=== PATIENT | male | born 1980 | race Caucasian/White ===

== ENCOUNTER 2019-09-19 00:39 | Emergency (ER) | payer OTHER, SELFPAY ==
[~2019-09-19] VITALS: Ht 170.2 cm; Wt 100.0 kg
[2019-09-19 00:39] VITALS: BP 176/90
[2019-09-19] MEDS ORDERED: ACET-683 PO (01:14)
[2019-09-19] MEDS ORDERED: LIDOCAINE W/EPINEPHRINE 1% 20ML VIAL SC ONE (01:45)
[2019-09-19] MEDS ORDERED: DOXY100C37 PO (02:04)
[2019-09-19] MEDS ORDERED: DOXYCYCLINE HYCLATE 100 MG TAB PO ONE (02:15)
== END 2019-09-19 02:42 | disposition home or self-care (01) ==
LOC: M ED 00:39
DX: L02.31 Cutaneous abscess of buttock (principal)

== ENCOUNTER → 2025-11-22 | Outpatient (REF) | payer BC ==
[~2025-11-22] MED LIST: ACET-683 PO; DOXY-441 PO
[2025-11-22 12:36] LABS: PLATELET COUNT, AUTOMATED 293 10^3/uL (150-450)
[2025-11-22 13:00] LABS: ALT/SGPT 33 U/L (7.0-40); AST/SGOT 17 U/L (<34); CALCIUM LEVEL 9.0 MG/DL (8.5-10.1); CARBON DIOXIDE LEVEL 30 MMOL/L (20-31); CHLORIDE LEVEL 107 MMOL/L (98-107); CHOLESTEROL LEVEL 184 MG/DL (<200); CHOLESTEROL RISK RATIO 5.34 (<5); CREATININE FOR GFR 0.76 MG/DL (0.70-1.30); GLOMERULAR FILTRATION RATE > 90.0 (>60); LDL CHOLESTEROL 102.6 MG/DL (<100); NON-HDL-C 149.6 MG/DL; POTASSIUM SERUM 4.2 MMOL/L (3.5-5.1); SODIUM LEVEL 142 MMOL/L (136-145); TRIGLYCERIDES LEVEL 235 MG/DL (<150)
[2025-11-22 13:02] LABS: FREE T4 1.15 NG/DL (0.89-1.76)
[2025-11-22 13:14] LABS: ESTIMATED AVERAGE GLUCOSE 117.0 MG/DL (60-110)
== END ==
LOC: M LABDRAWC 12:08
PROVIDERS: ATTEND Physician Assistant
DX: R73.03 Prediabetes (principal)